=== PATIENT | male | born 1980 | race Native Hawaiian/Other Pacific Islander ===

== ENCOUNTER 2018-05-29 08:21 | Emergency (ER) | payer BC ==
[~2018-05-29] VITALS: Ht 170.2 cm; Wt 74.8 kg
[2018-05-29 10:01] VITALS: BP 136/84; TEMP 97.9
== END 2018-05-29 10:09 | disposition home or self-care (01) ==
LOC: ED 08:21
DX: J06.9 Acute upper respiratory infection, unspecified (principal)
CPT/HCPCS: 87502; 99283